=== PATIENT | male | born 1990 | race Caucasian/White ===

== ENCOUNTER 2024-12-20 11:34 | Emergency (ER) | payer OTHER, SELFPAY ==
[2024-12-20 11:37] VITALS: BP 136/81; PULSE 78; RESP 18; TEMP 36.7; O2SAT 98; BMI 28.5
--- NOTE | 2024-12-20 12:31 | PD.EDBACK ---
ED Back Injury Pain RME/HPI General Chief Complaint: Back Pain/Injury Stated Complaint: LOWER BACK PAIN 0900 TODAY Time Seen by Provider: 12/20/24 12:32 Arrival date/time: 12/20/24 11:34 Limitations: no limitations RME / HPI RME / HPI Narrative: DR. ORONA MAIN ED EVALUATION: 34-year-old male presents to the Emergency Department with complaint of low mid back pain after twisting and turning at work around 9 AM today. He reports he was grabbing a handle, rotated his back, and immediately felt the area spasm. No history of back fractures or prior back surgeries. No numbness, weakness, incontinence, or saddle anesthesia reported. Related Data Previous Rx's ?Medication ?Instructions ?Recorded loperamide 2 mg capsule 2 mg PO Q6H PRN loose stool #14 07/02/23 (Anti-Diarrheal (loperamide)) caps ondansetron 4 mg disintegrating 4 mg PO Q8H PRN nausea and 07/02/23 tablet vomiting #14 tabs acetaminophen 300 mg-codeine 15 mg 1 tab PO BID PRN pain #7 tabs 10/22/23 tablet hydrocodone 5 mg-acetaminophen 325 1 tab PO Q6H PRN pain #20 tabs 12/20/24 mg tablet ibuprofen 600 mg tablet 600 mg PO Q6H pain #20 tabs 12/20/24 methocarbamol 750 mg tablet 750 mg PO Q6H spasm #20 tabs 12/20/24 Allergies Allergy/AdvReac Type Severity Reaction Status Date / Time No Known Allergies Allergy Verified 12/20/24 11:36 Review of Systems Review of Systems Systems Reviewed: All systems reviewed, normal except as documented Past Medical History Social History SMOKING STATUS: Heavy (> 1 pack/day) ED Exam General Limitations: Present no limitations General appearance: Present alert and in no apparent distress Head Head exam: Present atraumatic, normocephalic and normal inspection Eye Eye exam: Present normal appearance, PERRL and EOMI ENT ENT exam: Present normal exam, normal oropharynx and mucous membranes moist Neck Neck exam: Present normal inspection, full ROM and trachea midline Chest Chest inspection: Present normal inspection and symmetric chest wall rise Respiratory Respiratory exam: Present normal lung sounds bilaterally Cardiovascular Cardiovascular exam: Present regular rate, normal rhythm and normal heart sounds Abdominal Exam Abdominal exam: Present soft and normal bowel sounds Extremities Exam Extremities exam: Present normal inspection and full ROM Back Exam Back exam: Present tenderness (tenderness present over L3 to L4 spinous processes) Neurological Exam Neurological exam: Present alert, oriented X3 and CN II-XII intact Psychiatric Psychiatric exam: Present normal affect and normal mood Skin Skin exam: Present warm, dry, intact and normal color Course Quality Measures none Orders Category Date Time Status CT lumbar spine wo con Stat Exams 12/20/24 12:32 Completed Acetaminophen Tab [Tylenol Tab] Med 12/20/24 13:33 Discontinued 650 mg PO X1 ONE Ibuprofen Tab [Motrin Tab] Med 12/20/24 12:32 Discontinued 800 mg PO X1 ONE Vital Signs Vital signs: Vital Signs Temperature 98.1 F 12/20/24 11:37 Pulse Rate 78 12/20/24 11:37 Respiratory Rate 18 12/20/24 11:37 Blood Pressure 136/81 H 12/20/24 11:37 Pulse Oximetry (%) 98 12/20/24 11:37 Oxygen Delivery Method Room Air 12/20/24 11:37 Back Pain / Injury MDM Narrative MDM Narrative:: IEsther am scribing for and in the presence of Dr. Orona. 34-year-old male with acute low mid back pain after twisting injury at work. Exam shows L3 to L4 spinous tenderness without neurologic deficits. Symptoms likely consistent with musculoskeletal strain. Differential diagnoses include lumbar strain, muscle spasm, and vertebral injury. 1600: Patient will be discharged with lumbar radiculopathy and strain of lumbar region. Patient data External records reviewed:: [facility] previous records Clinical information provided by:: patient Social determinants that could affect healthcare access:: none Patient has the following chronic illnesses:: Denies any PMHx, surgeries, daily medications, or known allergies. No history of back fractures or prior back surgeries. How is presenting disease/condition affected by chronic disease/condition?: no chronic disease Evaluation data The following diagnostics were reviewed and interpreted by me:: radiology exam(s) Lab and/or radiology exams considered but not ordered:: none Interpretation Summary: Procedure(s): CT lumbar spine wo con Accession Number(s): [id number] cc: Gabriel Orona MD; Tejas Elizondo MD; NO PRIMARY/FAMILY,PHYSICIAN~ Examination: CT lumbar spine, without contrast. 2-D sagittal reconstructions. 2-D coronal reconstructions. 3-D reconstructions. INDICATIONS: Onset lower back pain beginning last night Date and time of exam: December 20, 2024, 1352 hours CTDI: vol (mGy): 22.2 DLP: (mGycm): 760 Technique: Multiple 1.25 mm axial sections of the lumbar spine without intravenous contrast have been obtained. 2-D sagittal and coronal reconstructions have been obtained. 3-D reconstructions have been obtained. Low dose protocols were performed. One or more of the following dose reduction techniques were used; automated exposure control, adjustment of the mA and/or KV according to patient size, use of iterative reconstruction technique. Findings: Satisfactory alignment lumbar vertebral bodies. No lumbar fracture. Mild to moderate disc narrowing L5-S1. No spondylolisthesis. Lumbar pedicles, laminae transverse and posterior spinous processes intact L5-S1 2 mm left paracentral left subarticular disc bulge contiguous with the left S1 nerve root More cephalad levels unremarkable IMPRESSION: No lumbar fracture Mild to moderate degenerative disc disease L5-S1 L5-S1 2 mm left paracentral subarticular disc bulge contiguous with the left S1 nerve root Consider elective MRI lumbar spine without contrast follow-up Dictated By: Tejas Elizondo MD Medications / Prescriptions Medications or Prescriptions considered but not ordered:: none Medication administrations:: Medication Administration History Discontinued Medications Acetaminophen (Acetaminophen 325 Mg Tablet) 650 mg PO X1 ONE Stop: 12/20/24 13:34 Last Admin: 12/20/24 13:59 Dose: 650 mg Documented By: Ibuprofen (Ibuprofen Tab 400 Mg Tablet) 800 mg PO X1 ONE Stop: 12/20/24 12:33 Last Admin: 12/20/24 13:25 Dose: Not Given Documented By: VL Non-Admin Reason: Patient Refused see above Consultations Consultation(s) initiated? (list below): No Diagnosis Differential diagnosis back pain/injury: other (lumbar strain, muscle spasm, and vertebral injury) Most likely diagnosis given after review of the tests above:: Lumbar radiculopathy Strain of lumbar region Admission Indicated Admission indicated?: not indicated Admission Request Was there a request for admission?: No Disposition Plan Disposition Plan: Discharge Discharge Attestation Discharge Attestation: The patient and all family members were given an opportunity to ask questions and understood the discharge instructions. Discharge instructions specifically effects, indications for sooner follow up or return to the emergency department, and the expected course of current diagnosis. Patient condition: Stable Discharge Plan Plan Patient Disposition: HOME (Self Care) Patient condition on transfer: Stable Prescriptions/Referrals Prescriptions/Med Rec: New hydrocodone-acetaminophen 5-325 mg tablet 1 tab PO Q6H MDD 4 tabs PRN (Reason: pain) Qty: 20 0RF methocarbamol 750 mg tablet 750 mg PO Q6H MDD 4 tabs Qty: 20 0RF ibuprofen 600 mg tablet 600 mg PO Q6H MDD 4 tabs Qty: 20 0RF No Action loperamide [Anti-Diarrheal (loperamide)] 2 mg capsule 2 mg PO Q6H PRN (Reason: loose stool) Qty: 14 0RF ondansetron 4 mg tablet,disintegrating 4 mg PO Q8H PRN (Reason: nausea and vomiting) Qty: 14 0RF acetaminophen-codeine 300-15 mg tablet 1 tab PO BID PRN (Reason: pain) Qty: 7 0RF Referrals: No Primary/Family,Physician [Primary Care Provider] - In 1 week Problem List Clinical Impression: Lumbar radiculopathy, Strain of lumbar region Patient/Caregiver Discharge Instructions Discharge Activity: activity as tolerated Education Materials: ED Back Care Tips, ED Back Pain (Acute or Chronic) Additional Instructions: Please follow-up with your employer and your Worker's Comp. clinic in 2 to 3 days. You need to be at strict bedrest the next 2 to 3 days. That means only getting up to eat and go to the bathroom or shower. Otherwise lay flat in bed. Off work for 4 days. Again follow-up with the Worker's Comp. clinic and consider referral to a back specialist. Print Language: Maltese Stand Alone Forms: Sita Award Info., Work/School Release, Patient Portal Info Letter
[2024-12-20] MEDS: ACETAMINOPHEN 325 MG TABLET 650 MG PO (13:59)
== END 2024-12-20 16:34 | disposition home or self-care (01) ==
PROVIDERS: Emergency Provider Family Medicine
DX: S39.012A Strain of muscle, fascia and tendon of lower back, initial encounter (principal); M51.17 Intervertebral disc disorders with radiculopathy, lumbosacral region; X50.1XXA Overexertion from prolonged static or awkward postures, initial encounter; Y93.89 Activity, other specified; Y92.812 Truck as the place of occurrence of the external cause; Y99.0 Civilian activity done for income or pay
CPT/HCPCS: 72131; 99282; A9270